=== PATIENT | female | born 1960 | race Caucasian/White ===

== ENCOUNTER 2016-08-30 19:13 | Emergency (ER) | payer MEDICARE, MEDICAID ==
[~2016-08-30 19:13] MED LIST: ABILIFY5 M1 PO; ACTOPLUS MET 151 TA PO; ALLEGRA180 MG PO; ANAFRANIL PO; ANTARA130 MG PO; ARTIFICIAL TEAR15 M OP; ASPIR-TRIN325 M2 PO; ASPIRIN325 MG PO; AVANDAMET 4 MG/1 TAB; CELEXA40 MG PO; CIPRO500 M2 PO; COLACE100 M1 PO; COREG12.5 MG PO; CRESTOR10 MG PO; DEPO-PROVER150 MG/ML; DOCUSATE SODIU100 M2 PO; FIBER LAXATIVE PO; FIBERCON625 MG PO; FLONASE16 GM; HUMULIN N100 U/ML SQ; HUMULIN-R100 UNITS/ SC; INSULIN SC; LEVEMIR100 U/M; LIPITOR20 MG PO; LISINOPRIL-HCTZ PO; LISINOPRIL-HCTZ1 TAB PO; LUBRICANT EYE3.5 G1 OP; MIRALAX17 G2 PO; NORVASC5 MG PO; NOVOLIN 70100 UNIT/1 SQ; OMEGA-31000 MG PO; PLAVIX75 MG PO; PRINIVIL10 M1 PO; RINSE; TENORMIN50 MG PO; TOPAMAX25 M1 PO; TYLENOL ARTHRI650 MG PO; VESICARE10 M1 PO; VITAMIN B6 PO; VITAMIN D-50000 IU/C PO; VITAMIN D2000 UNIT PO; ZANTAC15 PO; [UNRECOGNIZED DRUG - OTHER]
== END 2016-08-30 20:56 ==
LOC: EDMED 19:13
DX: S92.515A Nondisplaced fracture of proximal phalanx of left lesser toe(s), initial encounter for closed fracture (principal); S00.511A Abrasion of lip, initial encounter; E11.9 Type 2 diabetes mellitus without complications; I10 Essential (primary) hypertension; Z79.899 Other long term (current) drug therapy; W01.0XXA Fall on same level from slipping, tripping and stumbling without subsequent striking against object, initial encounter; Y92.480 Sidewalk as the place of occurrence of the external cause